=== PATIENT | female | born 1980 | race Caucasian/White ===

== ENCOUNTER 2017-02-25 21:04 | Emergency (ER) | payer OTHER ==
[~2017-02-25] VITALS: Ht 170.2 cm; Wt 123.5 kg
[~2017-02-25 21:04] MED LIST: ATEN-51 PO; DICY20TA59 PO; LORA10TA3 PO; TRAM50TA2 PO
[2017-02-25 21:16] VITALS: Ht 170.2 cm; Wt 123.5 kg
[2017-02-25] MEDS ORDERED: IBUPROFEN 600 MG TAB PO ONE (22:00)
--- NOTE | 2017-02-25 22:07 | ERD ---
ER Documentation Chief Complaint Date/Time DATE: 02/25/17 TIME: 22:03 Chief Complaint S/P FALL HIT HER L KNEE AND R HIP HPI 37-year-old female presents to emergency department for complaints of left knee pain and right hip pain after falling in the store today. Patient walked into a puddle of water in the store, tripped and fell, landed of the left knee on the right hip area. Patient describes the pain as throbbing pain, 6/10 scale, is worse upon movement of joints. Patient did not take any medications of symptoms. Patient denies any numbness or tingling. Patient denies any deformity. Patient's complaining of swelling on the right hip area. ROS All systems reviewed and are negative except as per history of present illness. Medications Home Meds Active Scripts Tramadol HCl (Tramadol HCl) 50 Mg Tablet, 50 MG PO Q6 Y for PAIN, #20 TAB Prov:LUCY CRUM MD 04/24/16 Reported Medications Atenolol* (Atenolol*) 25 Mg Tablet, 25 PO DAILY, #30 TAB 03/08/16 Dicyclomine Hcl* (Bentyl*) 20 Mg Tablet, 20 MG PO QID, TAB 03/08/16 Loratadine* (Loratadine*) 10 Mg Tablet, 10 MG PO DAILY, #30 TAB 03/08/16 Allergies Allergies: Coded Allergies: No Known Allergy (Unverified , 04/24/16) PMhx/Soc Medical and Surgical Hx: pt denies Medical Hx History of Surgery: Yes ( x 2) Anesthesia Reaction: No Hx Neurological Disorder: No Hx Respiratory Disorders: No Hx Cardiac Disorders: Yes (HTN) Hx Psychiatric Problems: No Hx Miscellaneous Medical Probl: Yes (Gallstones dx'd 02/2016; awaiting surgical consult apt) Hx Alcohol Use: No Hx Substance Use: No Hx Tobacco Use: No FmHx Family History: No coronary disease, No diabetes, No other Physical Exam Vitals Vital Signs Date Time Temp Pulse Resp B/P Pulse Ox O2 Delivery O2 Flow Rate FiO2 02/25/17 21:16 98.3 83 18 144/98 100 Physical Exam GENERAL: The patient is well developed and appropriate for usual state of health, in no apparent distress. CHEST: Clear to auscultation bilaterally. There are no rales, wheezes or rhonchi. HEART: Regular rate and rhythm. No murmurs, clicks, rubs or gallops. No S3 or S4. ABDOMEN: Soft, nontender and nondistended. Good bowel sounds. No rebound or guarding. No gross peritonitis. No gross organomegaly or masses. No Feldman sign or McBurney point tenderness. BACK: No midline or flank tenderness. EXTREMITIES: Noted tenderness on palpation left knee with mild swelling noted, able to do full range of motion without any restriction. Noted some swelling on the right hip area, no ecchymosis noted, no deformity noted, able to do full range of motion without any restriction. Equal pulses bilaterally. Full range of motion of motion of the joints of the body. Grossly neurovascularly intact. NEURO: Alert and oriented. Cranial nerves 2-12 intact. Motor strength in all 4 extremities with 5/5 strength. Sensation grossly intact. Normal speech and gait. SKIN: There is no apparent rash or petechia. The skin is warm and dry. HEMATOLOGIC AND LYMPHATIC: There is no evidence of excessive bruising or lymphedema. No gross cervical, axillary, or inguinal lymphadenopathy. Results 24 hrs Current Medications Medications (Trade) Dose Ordered Sig/Laureano Route PRN Reason Start Time Stop Time Status Last Admin Dose Admin Ibuprofen (Motrin) 600 mg ONCE ONCE PO 02/25/17 22:00 02/25/17 22:01 DC 02/25/17 21:59 Patient was given medication for pain here in emergency department, after treatment, patient verbalized feeling much better. Patient's pain is improved. PROCEDURE: XR Hip. CLINICAL INDICATION: Right hip pain. TECHNIQUE: AP and frog lateral views of the right hip were performed. COMPARISON: None. FINDINGS: There is normal mineralization and alignment. No fracture or osseous lesion is identified. There are normal joints without evidence of arthritis or effusion. The soft tissues are unremarkable. IMPRESSION: Unremarkable right hip. RPTAT: [facility] Physician Kelle Date Time Electronically viewed and signed by Physician Kelle on 02/25/2017 23:45 RS/ CC: DERICK JHAVERI MENTAL HEALTH CONSULTANT PROCEDURE: X-ray left knee CLINICAL INDICATION: Left knee pain status post fall. TECHNIQUE: 3 views left knee. COMPARISON: None. FINDINGS: Reference marker over the lateral aspect of the lateral tibial plateau, without evident underlying radiographic abnormality. No acute fracture or dislocation. No significant joint fluid. Soft tissues unremarkable. IMPRESSION: No acute fracture. RPTAT: [facility] Physician Kelle Date Time Electronically viewed and signed by Cornell Saha Physician on 02/25/2017 23:45 RS/ CC: DERICK JHAVERI MENTAL HEALTH CONSULTANT Procedures/MDM Medical Decision Making: Patient's pain is most likely consistent with a knee contusion and hip contusion. There is no suspicion for neurovascular compromise. Patient has intact sensation and circulation of the affected extremity. There is low suspicion for septic arthritis. Patient does not have any fever. Radiology exams of the affected area does not show any fracture or dislocation. Disposition: Home. Patient is given prescription for ibuprofen for pain, tramadol for severe pain. Patient was advised to elevate the affected area and apply ice on affected area. Patient was advised that if symptoms are worse, numbness, tingling, high fever, unable to move joint, worsening symptoms, to return to emergency department immediately. Otherwise, patient is advised to follow up with the primary care doctor in 5-7 days for reevaluation of symptoms. Departure Diagnosis: Primary Impression: Knee contusion Encounter type: initial encounter Laterality: left Qualified Code: S80.02XA - Contusion of left knee, initial encounter Additional Impression: Contusion, hip Encounter type: initial encounter Laterality: right Qualified Code: S70.01XA - Contusion of right hip, initial encounter Condition: Stable Patient Instructions: Hip Contusion, Knee Pain, Uncertain Cause Additional Instructions: Patient is given prescription for ibuprofen for pain, tramadol for severe pain. Patient was advised to elevate the affected area and apply ice on affected area. Patient was advised that if symptoms are worse, numbness, tingling, high fever, unable to move joint, worsening symptoms, to return to emergency department immediately. Otherwise, patient is advised to follow up with the primary care doctor in 5-7 days for reevaluation of symptoms. DERICK JHAVERI NP February 25, 2017 22:07
--- NOTE | 2017-02-25 23:45 | RADRPT ---
PROCEDURE: X-ray left knee CLINICAL INDICATION: Left knee pain status post fall. TECHNIQUE: 3 views left knee. COMPARISON: None. FINDINGS: Reference marker over the lateral aspect of the lateral tibial plateau, without evident underlying r adiographic abnormality. No acute fracture or dislocation. No significant joint fluid. Soft tissu es unremarkable. IMPRESSION: No acute fracture. RPTAT: [facility] Physician Kelle Date Time Electronically viewed and signed by Cornell Saha Physician on 02/25/2017 23:45 RS/
--- NOTE | 2017-02-25 23:46 | RADRPT ---
PROCEDURE: XR Hip. CLINICAL INDICATION: Right hip pain. TECHNIQUE: AP and frog lateral views of the right hip were performed. COMPARISON: None. FINDINGS: There is normal mineralization and alignment. No fracture or osseous lesion is identified. There are normal joints without evidence of arthritis or effusion. The soft tissues are unremarkable. IMPRESSION: Unremarkable right hip. RPTAT: [facility] Physician Kelle Date Time Electronically viewed and signed by Physician Kelle on 02/25/2017 23:45 RS/
[2017-02-25] MEDS ORDERED: TRAM50TA2 PO (23:53)
[2017-02-25] MEDS ORDERED: IBUP-1542 PO (23:53)
== END 2017-02-26 00:05 | disposition home or self-care (01) ==
LOC: FTE 21:04
DX: S80.02XA Contusion of left knee, initial encounter (principal); S70.01XA Contusion of right hip, initial encounter; I10 Essential (primary) hypertension; W01.198A Fall on same level from slipping, tripping and stumbling with subsequent striking against other object, initial encounter; Y92.9 Unspecified place or not applicable
CPT/HCPCS: 73510; 73562; Z7502; Z7610

== ENCOUNTER 2017-10-14 18:59 | Emergency (ER) | END 2017-10-15 06:56 | disposition home or self-care (01) ==

== ENCOUNTER 2018-07-10 16:10 | Emergency (ER) | END 2018-07-10 18:53 | disposition home or self-care (01) ==

== ENCOUNTER 2019-01-26 16:33 | Emergency (ER) | payer OTHER ==
[~2019-01-26] VITALS: Ht 180.3 cm; Wt 126.6 kg
[~2019-01-26 16:33] MED LIST changes: +IBUP-1542 PO; +OSEL75CA23 PO; +PROM5SYR2 PO
[2019-01-26 16:37] VITALS: Ht 180.3 cm; Wt 126.6 kg
[2019-01-26] MEDS ORDERED: ONDANSETRON 4 MG INJ IV STA (17:00)
[2019-01-26] MEDS ORDERED: morphine 4 MG/ML VIAL IV STA (17:00)
--- NOTE | 2019-01-26 17:03 | ERD ---
ER Documentation Chief Complaint Chief Complaint Abdominal pain at 3 AM HPI Very pleasant 39-year-old female who presents with epigastric abdominal pain that started at 3 AM this morning. Patient has a known history of cholelithiasis but has not had any issues for 1 year. She states that she ate a large meal late last night before going to bed. She woke up with pain. The pain is 8 out of 10, sharp and nonradiating. She denies any chest pain or pressure, no pleuritic pain, no mid back pain and no ripping or tearing sensation. This is similar to pain when she had biliary colic before. Her blood pressure is noted to be elevated she states compliance with blood pressure medications. No chest pressure no significant headache. ROS All systems reviewed and are negative except as per history of present illness. Medications Home Meds Active Scripts Ibuprofen* (Motrin*) 800 Mg Tab, 800 MG PO Q6H PRN for PAIN AND OR ELEVATED TEMP, #30 TAB Prov:PATSY ROCHA MD 01/26/19 Ondansetron (Ondansetron Odt) 4 Mg Tab.rapdis, 4 MG PO Q6H PRN for NAUSEA AND/OR VOMITING, #10 TAB Prov:PATSY ROCHA MD 01/26/19 Hydrocodone/Acetaminophen (Gilbert 5-325 Tablet) 1 Each Tablet, 1 TAB PO Q6H PRN for PAIN, #10 TAB Prov:PATSY ROCHA MD 01/26/19 Reported Medications Benazepril Hcl* (Benazepril Hcl*) 20 Mg Tablet, 20 MG PO DAILY, #30 TAB 01/26/19 Hydrochlorothiazide* (Hydrochlorothiazide*) 25 Mg Tab, 25 MG PO DAILY, #30 TAB 01/26/19 Atenolol* (Atenolol*) 50 Mg Tablet, 50 MG PO DAILY, #30 TAB 01/26/19 Discontinued Reported Medications Atenolol* (Atenolol*) 25 Mg Tablet, 25 PO DAILY, #30 TAB 03/08/16 Dicyclomine Hcl* (Bentyl*) 20 Mg Tablet, 20 MG PO QID, TAB 03/08/16 Loratadine* (Loratadine*) 10 Mg Tablet, 10 MG PO DAILY, #30 TAB 03/08/16 Discontinued Scripts Ibuprofen* (Motrin*) 600 Mg Tab, 600 MG PO Q6H PRN for PAIN AND OR ELEVATED TEMP, #30 TAB Prov:CLAUDIA AIKEN MD 10/14/17 Promethazine HCl/Codeine (Prometh-Codein 6.25-10 mg/5 ml) 5 Ml Syrup, 5 ML PO TID for 5 Days, #120 ML Prov:CLAUDIA AIKEN MD 10/14/17 Oseltamivir Phosphate* (Tamiflu*) 75 Mg Capsule, 75 MG PO BID for 5 Days, CAP Prov:CLAUDIA AIKEN MD 10/14/17 Tramadol HCl (Tramadol HCl) 50 Mg Tablet, 50 MG PO Q6 PRN for SEVERE PAIN LEVEL 7-10, #20 TAB Prov:DERICK JHAVERI NP 02/25/17 Ibuprofen* (Motrin*) 600 Mg Tab, 600 MG PO Q6H PRN for PAIN AND OR ELEVATED TEMP, #30 TAB Prov:DERICK JHAVERI NP 02/25/17 Tramadol HCl (Tramadol HCl) 50 Mg Tablet, 50 MG PO Q6 PRN for PAIN, #20 TAB Prov:LUCY CRUM MD 04/24/16 Allergies Allergies: Coded Allergies: No Known Allergy (Unverified , 01/26/19) PMhx/Soc History of Surgery: Yes ( x 2) Anesthesia Reaction: No Hx Neurological Disorder: No Hx Respiratory Disorders: No Hx Cardiac Disorders: Yes (HTN) Hx Psychiatric Problems: No Hx Miscellaneous Medical Probl: Yes (Gallstones dx'd 02/2016) Hx Alcohol Use: No Hx Substance Use: No Hx Tobacco Use: No Smoking Status: Never smoker FmHx Family History: No diabetes Physical Exam Vitals Vital Signs Date Temp Pulse Resp B/P (MAP) Pulse Ox O2 O2 Flow FiO2 Time Delivery Rate 01/26/19 65 20 176/92 100 Room Air 18:21 (120) 01/26/19 63 20 193/99 100 Room Air 18:02 (130) 01/26/19 71 24 181/112 100 Room Air 17:33 (135) 01/26/19 99.5 71 20 201/120 99 16:37 (147) Physical Exam General: Well developed, well nourished, no acute distress Head: Normocephalic, atraumatic. Eyes: Pupils equally reactive, EOM intact ENT: Moist mucous membranes Neck: Supple, no lymphadenopathy Respiratory: Lungs clear bilaterally, no distress Cardiovascular: RRR, no murmurs, rubs, or gallops Abdominal: Soft, very mild epigastric abdominal tenderness without rebound or guarding, negative Feldman sign : Deferred MSK: No edema, no unilateral swelling, 5/5 strength Neurologic: Alert and oriented, moving all extremities, normal speech, no focal weakness, no cerebellar signs Skin: No rash Psych: Normal mood Result Diagram: 01/26/19 1723 01/26/19 1723 Results 24 hrs Laboratory Tests Test 01/26/19 17:19 01/26/19 17:23 POC Beta HCG, Qualitative NEGATIVE White Blood Count 13.7 10^3/ul Red Blood Count 4.49 10^6/ul Hemoglobin 12.5 g/dl Hematocrit 38.8 % Mean Corpuscular Volume 86.4 fl Mean Corpuscular Hemoglobin 27.8 pg Mean Corpuscular Hemoglobin Concent 32.2 g/dl Red Cell Distribution Width 13.6 % Platelet Count 309 10^3/UL Mean Platelet Volume 9.5 fl Immature Granulocytes % 0.600 % Neutrophils % 78.7 % Lymphocytes % 16.0 % Monocytes % 4.0 % Eosinophils % 0.4 % Basophils % 0.3 % Nucleated Red Blood Cells % 0.0 /100WBC Immature Granulocytes # 0.080 10^3/ul Neutrophils # 10.8 10^3/ul Lymphocytes # 2.2 10^3/ul Monocytes # 0.6 10^3/ul Eosinophils # 0.1 10^3/ul Basophils # 0.0 10^3/ul Nucleated Red Blood Cells # 0.0 10^3/ul Sodium Level 139 mmol/L Potassium Level 3.5 mmol/L Chloride Level 103 mmol/L Carbon Dioxide Level 26 mmol/L Anion Gap 10 Blood Urea Nitrogen 6 mg/dl Creatinine 0.62 mg/dl Est Glomerular Filtrat Rate mL/min > 60 mL/min Glucose Level 110 mg/dl Calcium Level 9.1 mg/dl Total Bilirubin 0.3 mg/dl Direct Bilirubin 0.00 mg/dl Indirect Bilirubin 0.3 mg/dl Aspartate Amino Transf (AST/SGOT) 33 IU/L Alanine Aminotransferase (ALT/SGPT) 28 IU/L Alkaline Phosphatase 108 IU/L Troponin I < 0.012 ng/ml Total Protein 7.7 g/dl Albumin 4.2 g/dl Globulin 3.50 g/dl Albumin/Globulin Ratio 1.20 Lipase 111 U/L Current Medications Medications Dose Sig/Laureano Start Time Status Last (Trade) Ordered Route PRN Stop Time Admin Dose Reason Admin Morphine 4 mg ONCE STAT 01/26/19 DC 01/26/19 Sulfate IV 17:00 17:24 (morphine) 01/26/19 17:01 Ondansetron 4 mg ONCE STAT 01/26/19 DC 01/26/19 HCl (Zofran IV 17:00 17:24 Inj) 01/26/19 17:01 0.5 mg ONCE STAT 01/26/19 DC 01/26/19 Hydromorphone IV 18:06 18:09 HCl 01/26/19 18:07 (Dilaudid) Procedures/MDM EKG, MONITORS, & DIAGNOSTIC IMAGING: Gallbladder ultrasound: IMPRESSION: Cholelithiasis. No sonographic evidence of acute cholecystitis. No biliary ductal dilatation. EKG: I reviewed and interpreted a 12-lead EKG. Rhythm: Normal sinus rhythm ST Changes: No contiguous ST segment elevations T waves: No contiguous T wave inversions Impression: No evidence of acute cardiac ischemia LAB INTERPRETATION: I reviewed the laboratory testing and it shows no evidence of acute process MEDICAL DECISION MAKING: Signs and symptoms very consistent with likely GI process such as peptic ulcer, reflux, gastritis or biliary colic. Low concern for acute cholecystitis or choledocholithiasis. However, given the patient's biliary history of do believe labs and ultrasound would be appropriate. Patient's blood pressure is elevated but she has no migratory pain and no neurologic symptoms that are suggestive of dissection. She has no chest pressure but in the setting of this elevated blood pressure I do believe EKG and troponin would be reasonable even though I have an extremely low pretest probability for cardiac etiology. ER COURSE: * Patient given pain control medication. * Nonobstructive process on labs and imaging. Pain well controlled with second dose of pain medication. Outpatient management of biliary colic appropriate. Return precautions were discussed and understood. * Blood pressure improving with pain control. CONSULTATION: None DISPOSITION PLAN: The patient does not have an identifiable emergent medical condition that warrants inpatient hospitalization at this time. The patient is deemed safe for discharge with outpatient follow-up. We discussed follow up with the patient's primary care doctor within 24 to 48 hours as needed. We also discussed return to the emergency room for worsening symptoms or worsening condition. Outpatient referral: General surgery Discharge Medications: Gilbert, Zofran, Motrin NARCOTIC MEDICATION: The patient has been prescribed a narcotic medication during this encounter. The patient has been warned about the use of narcotics. The patient should not drive or operate heavy machinery while taking this medication. The patient was also warned about the addictive properties of narcotic medications. Narcan prescription was NOT provided given the following criteria: 1. No more than 5 tablets of Gilbert 10 mg or 10 tablets of Gilbert 5 mg were prescribed. 2. Concomitant opiate and benzodiazepine prescriptions were not provided. 3. There is no obvious evidence of prior history of opiate abuse or overdose. Departure Diagnosis: Primary Impression: Biliary colic Additional Impressions: RUQ abdominal pain Asymptomatic hypertensive urgency Condition: Stable PATSY ROCHA MD Jan 26, 2019 17:03
[2019-01-26] MEDS ORDERED: ATEN50TA PO (17:35)
[2019-01-26] MEDS ORDERED: BENA20TA4 PO (17:36)
[2019-01-26] MEDS ORDERED: HYDR25TA6 PO (17:36)
[2019-01-26] MEDS ORDERED: HYDROmorphONE 0.5 MG/0.5 ML SYG IV STA (18:06)
[2019-01-26] MEDS ORDERED: HYDR-4011 PO (18:24)
[2019-01-26] MEDS ORDERED: ONDA4TAB14 PO (18:24)
[2019-01-26] MEDS ORDERED: IBUP800T48 PO (18:24)
[2019-01-26 19:50] VITALS: BP 149/82; PULSE 69; RESP 19
== END 2019-01-26 19:30 | disposition home or self-care (01) ==
LOC: E/R 16:33
DX: K80.50 Calculus of bile duct without cholangitis or cholecystitis without obstruction (principal); I16.0 Hypertensive urgency
CPT/HCPCS: 36415; 76705; 80053; 81025; 83690; 84484; 85025; 93005; 96374; 96375; J1170; J2270; J2405; Z7502